=== PATIENT | male | born 1985 | race Caucasian/White ===

== ENCOUNTER 2018-11-01 11:10 | Emergency (ER) | payer OTHER ==
[~2018-11-01] VITALS: Ht 188 cm; Wt 99.8 kg
[2018-11-01] MEDS ORDERED: IBUPROFEN 400 MG TABLET. PO ONE (12:00)
[2018-11-01] MEDS ORDERED: IBUP800T19 PO (12:27)
--- NOTE | 2018-11-01 12:27 | PHYS DOC ---
Past History Past Medical History: Hypertension, Other Past Surgical History: Tonsillectomy, Other Additional Smoking Information: PACK/DAY Alcohol Use: Occasionally Additional Alcohol Information: WEEKENDS Drug Use: Marijuana Adult General Chief Complaint Chief Complaint: HAND PROBLEM HPI HPI Duplicated chart Review of Systems Review of Systems Duplicated chart Current Medications Current Medications Current Medications Medications (Trade) Dose Ordered Sig/Eliza Start Time Stop Time Status Last Admin Dose Admin Ibuprofen (Motrin) 800 mg 1X ONCE 11/01/18 12:00 11/01/18 12:01 11/01/18 11:56 800 MG Allergies Allergies Allergies Coded Allergies Type Severity Reaction Last Updated Verified No Known Drug Allergies 11/01/18 No Physical Exam Physical Exam Duplicated chart Current Patient Data Vital Signs Vital Signs Date Time Temp Pulse Resp B/P (MAP) Pulse Ox O2 Delivery O2 Flow Rate FiO2 11/01/18 11:15 98.2 106 20 97 Room Air EKG EKG [] Radiology/Procedures Radiology/Procedures [] Course & Med Decision Making Course & Med Decision Making Duplicated chart Dragon Disclaimer Dragon Disclaimer Duplicated chart Departure Departure: Referrals: ALE MOLINA MD (PCP) Scripts Ibuprofen (IBUPROFEN) 800 Mg Tablet 1 TAB PO TID for pain, #30 TAB Prov: REVA MAE MD 11/01/18 REVA MAE MD Nov 01, 2018 12:27
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
[2018-11-01 12:28] VITALS: BP 139/73
--- NOTE | 2018-11-01 12:37 | RAD ---
Right hand, 3 views, 11/01/2018: HISTORY: Hand injury There is an old healed fracture of the second metacarpal shaft. There is a slightly impacted fracture of the distal fourth metacarpal at the base of the metacarpal head which appears recent. No other fracture or dislocation is identified. There is moderate soft tissue swelling along the ulnar aspect of the hand in the metacarpal region. IMPRESSION: 1. Acute distal fourth metacarpal fracture. 2. Old healed second metacarpal fracture Electronically signed by: Darryn Royal MD (11/01/2018 12:34 PM) [facility]
== END 2018-11-01 12:40 | disposition home or self-care (01) ==
LOC: ER 11:10
DX: S62.394A Other fracture of fourth metacarpal bone, right hand, initial encounter for closed fracture (principal); S01.01XA Laceration without foreign body of scalp, initial encounter; F17.200 Nicotine dependence, unspecified, uncomplicated; I10 Essential (primary) hypertension; Z71.6 Tobacco abuse counseling; Z91.19 Patient's noncompliance with other medical treatment and regimen; Y04.0XXA Assault by unarmed brawl or fight, initial encounter; Y93.89 Activity, other specified; Y92.89 Other specified places as the place of occurrence of the external cause; Y99.8 Other external cause status
CPT/HCPCS: 12002; 29130; 73130; 99283